=== PATIENT | female | born 1985 | race Caucasian/White ===

== ENCOUNTER → 2016-08-11 | Outpatient (CLI) | payer BC ==
[~2016-08-11] MED LIST: [UNRECOGNIZED DRUG - CODE]
[2016-08-11 18:06] LABS: GTGD 50 Grams
[2016-08-15 13:59] LABS: AFP CONCENTRATION 23.6 NG/ML; AFP MULTIPLE OF MEDIAN 0.91; AFPTS GESTATIONAL AGE 16.3 WEEKS; AFPTS INSULIN DEP DIABETIC? NO; AFPTS MATERNAL WT 226 LBS; ALPHA-FETOPROTEIN RACE CAUCASIAN=W; ESTRIOL MULTIPLE OF MEDIAN 1.55; HISTORY OF NTD NO; INHIBIN A 116 PG/ML; INHIBIN A MOM 0.83; REPEAT SAMPLE? NO; hCG MULTIPLE OF MEDIAN 1.42
== END | disposition home or self-care (01) ==
LOC: C.LAB1850 15:48
PROVIDERS: ATTEND Obstetrics & Gynecology
DX: Z34.82 Encounter for supervision of other normal pregnancy, second trimester (principal)

== ENCOUNTER → 2016-09-09 | Outpatient (CLI) | payer BC | END | disposition home or self-care (01) | LOC: C.LAB1850 07:21 | PROVIDERS: ATTEND Obstetrics & Gynecology | DX: O28.1 Abnormal biochemical finding on antenatal screening of mother (principal) ==

== ENCOUNTER → 2016-10-27 | Outpatient (CLI) | payer BC | LOC: C.LAB1850 07:54 | PROVIDERS: ATTEND Obstetrics & Gynecology | DX: Z34.82 Encounter for supervision of other normal pregnancy, second trimester (principal) ==

== ENCOUNTER → 2016-11-02 | Outpatient (CLI) | payer BC ==
[2016-11-02 18:11] LABS: URINE APPEARANCE CLEAR (CLEAR); URINE BILIRUBIN NEG (NEG); URINE COLOR YELLOW; URINE NITRITE NEG (NEG); URINE PH 6.5 (4.5-7.5); URINE SPECIFIC GRAVITY 1.019 (1.000-1.030); UROBILINOGEN NEG (NEG)
[2016-11-02 18:23] LABS: MANUAL MICROSCOPIC REQUIRED? NO; REVIEW REQ? NO
== END | disposition home or self-care (01) ==
LOC: C.LABSPEC 17:19
PROVIDERS: ATTEND Obstetrics & Gynecology
DX: Z34.83 Encounter for supervision of other normal pregnancy, third trimester (principal)

== ENCOUNTER → 2016-11-02 | Outpatient (CLI) | payer BC | END | disposition home or self-care (01) | LOC: C.LAB1850 16:47 | PROVIDERS: ATTEND Obstetrics & Gynecology | DX: Z34.83 Encounter for supervision of other normal pregnancy, third trimester (principal) ==

== ENCOUNTER → 2016-12-29 | Outpatient (CLI) | payer BC | END | disposition home or self-care (01) | LOC: C.LABSPEC 13:44 | PROVIDERS: ATTEND Obstetrics & Gynecology | DX: Z34.83 Encounter for supervision of other normal pregnancy, third trimester (principal) ==

== ENCOUNTER 2017-01-26 01:22 | Inpatient (IN) | payer BC ==
[~2017-01-26] VITALS: Ht 170.2 cm; Wt 117.9 kg
[2017-01-26] MEDS ORDERED: LACTATED RINGER'S 1000ML 1,000 ML IV SCH (01:37)
[2017-01-26] MEDS ORDERED: LACTATED RINGER'S 1000ML 1,000 ML IV PRN (01:37)
[2017-01-26 01:58] VITALS: Ht 170.2 cm; Wt 117.9 kg
[2017-01-26] MEDS ORDERED: EpHEDrine SULFATE INJ 50 MG/ML AMP ONE (02:00)
[2017-01-26] MEDS ORDERED: FENTANYL 2MCG/ML ROPIV 1.25MG/ML 100ML BAG EPI ONE (02:00)
[2017-01-26] MEDS ORDERED: BUPIVACAINE 0.25% 30 ML VIAL ONE (02:00)
[2017-01-26] MEDS ORDERED: FENTANYL CITRATE INJ 50 MCG/1 ML 2 ML VIAL ONE (02:01)
[2017-01-26 02:07] LABS: HEMATOCRIT 34.3 % (37-47); MEAN CELL VOLUME 82.9 fL (80-100); MEAN CORPUSCULAR HEMOGLOBIN 27.3 pg (25-34); MEAN PLATELET VOLUME 9.4 fL (7.4-10.4); PLATELET COUNT 262 K/uL (130-400); RED BLOOD COUNT 4.14 M/uL (4.2-5.4); WHITE BLOOD COUNT 9.33 K/uL (4.8-10.8)
[2017-01-26 02:17] LABS: MEAN CORPUSCULAR HGB CONC 32.9 g/dl (32-36)
[2017-01-26] MEDS ORDERED: LACTATED RINGER'S 1000ML 500 ML IV PRN (02:58)
[2017-01-26] MEDS ORDERED: NALOXONE HCL INJ 1 MG in SODIUM CHLORIDE 0.9% 1000ML 1,000 ML IV PRN (02:58)
[2017-01-26] MEDS ORDERED: PROMETHAZINE HCL INJ 6.25 MG in SODIUM CHLORIDE 0.9% 50ML 50 ML IV PRN (03:00)
[2017-01-26] MEDS ORDERED: ONDANSETRON INJ 2 MG/ML 2 ML VIAL IV PRN (03:00)
[2017-01-26] MEDS ORDERED: FENTANYL 2MCG/ML ROPIV 1.25MG/ML 100ML BAG EPI PRN (03:00)
[2017-01-26] MEDS ORDERED: DiphenhydrAMINE HCL 50 MG/ML VIAL IV PRN (03:00)
[2017-01-26] MEDS ORDERED: NALOXONE HCL INJ 0.4 MG/1 ML VIAL/CARP IV PRN (03:00)
[2017-01-26] MEDS ORDERED: NALBUPHINE HCL INJ 10 MG/ML AMP IV PRN (03:00)
[2017-01-26] MEDS ORDERED: EpHEDrine SULFATE INJ 50 MG/ML AMP IV PRN (03:00)
[2017-01-26] MEDS ORDERED: OXYTOCIN 30 UNITS/500ML NSS IV ONE (10:29)
[2017-01-26] MEDS ORDERED: LANOLIN OINT EXT PRN ×2 (10:45)
[2017-01-26] MEDS ORDERED: SUPERCREAM 0.870 % 15GM JAR EXT PRN (10:45)
[2017-01-26] MEDS ORDERED: ACETAMINOPHEN 325 MG TAB PO PRN (10:45)
[2017-01-26] MEDS ORDERED: OXYTOCIN 30 UNITS/500ML NSS IV PRN (10:45)
[2017-01-26] MEDS ORDERED: BENZOCAINE 20% AER SPR 82.5 GM CAN EXT PRN (10:45)
[2017-01-26] MEDS ORDERED: ACETAMINOPHEN/CODEINE 300/30MG TAB PO PRN ×2 (10:45)
--- NOTE | 2017-01-26 10:53 | Anesthesia Procedure Note ---
Anesthesia Epidural Removal Nt Date & Time Jan 26, 2017 at 10:53 Vital Signs Pain Intensity: 3.0 Notes Mental Status: alert / awake / arousable, participated in evaluation Nausea / Vomiting: adequately controlled Pain: adequately controlled Airway Patency, RR, SpO2: stable & adequate BP & HR: stable & adequate Hydration State: stable & adequate Neuraxial Anesthesia: was administered Anesthetic Complications: no major complications apparent, pt satisfied with anesthetic care Epidural: removed without complications, with tip intact
--- NOTE | 2017-01-26 11:26 | Vaginal Delivery Summary ---
Vaginal Delivery Summary Aparna is a 31-year-old 2 para 1001 white female EDC of 01/24/2017, who presents at 40 weeks in active labor. She received effective epidural analgesia. Membranes were ruptured at 8 cm dilation. The fluid was clear. She progressed rapidly to full dilation and pushed effectively through 3 contractions for delivery of a viable female . After delivery of the head., There was noted a tight nuchal cord which was clamped and cut. The rest of the delivered with ease. There was spontaneous crying which was vigorous, and the was moving all 4 limbs. The infant was placed on mother's abdomen for further attention and drying. The placenta was expressed intact with a three-vessel cord. A first-degree perineal laceration was repaired with 3-0 chromic in the usual fashion. Estimated blood loss is 250 mL. Mother and were doing well after delivery. bleeding was controlled with dilute Pitocin.
[2017-01-26] MEDS: IBUPROFEN 600 MG TAB PO PRN (13:08)
[2017-01-26 14:20] VITALS: BP 126/75; PULSE 101; TEMP 37.2
[2017-01-26 16:15] VITALS: BP 134/82; PULSE 84; TEMP 37.4; O2SAT 97
[2017-01-26 20:00] VITALS: BP 156/91; PULSE 88; TEMP 36.6; O2SAT 98
[2017-01-26] MEDS: DOCUSATE SODIUM 100 MG CAP PO SCH (20:11)
[2017-01-26 23:55] VITALS: BP 143/88; PULSE 87; TEMP 37.1; O2SAT 98
[2017-01-27] MEDS: IBUPROFEN 600 MG TAB PO PRN ×3 (00:03→09:23)
[2017-01-27 03:35] VITALS: BP 138/88; PULSE 94; TEMP 36.9; O2SAT 98
--- NOTE | 2017-01-27 06:31 | OB/GYN Progress Note ---
MANAGER UTILIZATION REVIEW Progress Note Date of Service Jan 27, 2017. Subjective conversation w/ patient, conversation w/ family, physical exam, chart review, lab review Ambulation: ambulating normally Voiding: no voiding problems Passing Gas: Yes (No BM yet) Diet Tolerance: Regular Diet Lochia: Small Feeding Type: Breast Feeding Pain: Says low abd cramping, mostly with breast feeding, denies pain. Notes: When asked if any hx HTN, pt denies, but says in last she had elev BP around time of delivery only. Pt says that self-resolved. At present, pt denies JOHNSON, blurry vision, extremity sensation/motor concerns, or other acute c/ o. Review of Systems Constitutional: No fever, No chills Respiratory: No cough, No shortness of breath Cardiac: No chest pain Abdomen: No nausea, No vomiting, No diarrhea Female : No dysuria Objective Vital Signs Date Time Temp Pulse Resp B/P (MAP) Pulse Ox O2 Delivery O2 Flow Rate FiO2 01/27/17 03:35 36.9 94 20 138/88 (105) 98 Room Air 01/26/17 23:55 37.1 87 18 143/88 (106) 98 Room Air 01/26/17 23:55 98 Room Air 01/26/17 20:00 36.6 88 18 156/91 (112) 98 Room Air 01/26/17 16:15 97 01/26/17 16:15 37.4 84 18 134/82 (99) 97 Room Air 01/26/17 14:20 37.2 101 22 126/75 (92) Physical Exam General Appearance: WELL-APPEARING, WD/WN, NO APPARENT DISTRESS Respiratory/Chest: lungs clear, normal breath sounds Cardiovascular: regular rate, rhythm Abdomen: normal bowel sounds, non tender, soft Fundus: Firm, Relation to Umbilicus (Approx one down) Extremities: normal range of motion, non-tender, no calf tenderness, + pedal edema (Minimal (B) ankle edema) Laboratory Results Last 24 Hours Test 01/27/17 04:44 Assessment and Plan Post- Day Number: 1 Continue Routine Care: Resident Physician Supervision Note: I was present with Dr. Wright during the history and exam. I discussed the case with the resident and agree with the findings and plan as documented in the note. Any exceptions or clarifications are listed here: [None] Documented By: Lu Coto In my clinical judgment this beneficiary meets acute admission criteria, established by [facility], that includes being hospitalized through two midnights.31yo s/p , now PPD #1. - Blood type A pos. GBS negative. Rubella immune. - Vital signs reviewed. Some elevated BP in last 12 hours. No JOHNSON, vision, focal neuro deficits. Will discuss on rounds. - Pain controlled with motrin and local heat pack. - Minimal leg swelling but no tenderness on calf palpation. Encourage ambulation. - Encourage breast feeding. - Hemoglobin 11.3 (prepartum). Today's Hb pending. Bleeding has improved. Continue to monitor clinically. - Continue routine post-vaginal delivery care. - Pt agreed with above plan, all current questions answered. Librado Wright MD, PGY1 [place] [employer] Tracking Resident Involvement: Resident Care Provided Care Provided: OB Delivery (morning rounds)
[2017-01-27 06:50] LABS: HEMATOCRIT 32.3 % (37-47)
[2017-01-27 07:10] VITALS: BP 149/84; PULSE 77; TEMP 36.9; O2SAT 98
[2017-01-27] MEDS ORDERED: PRENATAL VITAMIN TAB PO SCH (08:00)
[2017-01-27] MEDS: DOCUSATE SODIUM 100 MG CAP PO SCH (08:31)
--- NOTE | 2017-01-27 09:14 | Discharge Instructions ---
Discharge Instructions Date of Service Jan 27, 2017. Visit Reason for Visit: LABOR Discharge Discharge Diagnosis / Problem: Recovery from vaginal delivery Discharge Goals Goal(s): Specific goals (Recovery from vaginal delivery) Activity Recommendations Activity Limitations: per Instructions/Follow-up section Anesthesia . Post Anesthesia Instructions: If you have had General Anesthesia or IV Sedation: * Do not drive today. * Resume driving when surgeon permits. * Do not make important decisions or sign legal documents today. * Call surgeon for: 1. Temperature elevations greater than 101 degrees F. 2. Uncontrollable pain. 3. Excessive bleeding. 4. Persistent nausea and vomiting. 5. Medication intolerance (nausea, vomiting or rash). * For nausea and vomiting use only clear liquids such as: tea, soda, bouillon until nausea subsides, then gradually increase diet as tolerated. * If you have any concerns or questions, call your surgeon's office. If physician is unavailable and it is an emergency, call 911 or go to the nearest emergency room. . Instructions / Follow-Up Instructions / Follow-Up ACTIVITY RECOMMENDATIONS: * Gradual return to full activity over the next 2-3 weeks. * No lifting - nothing heavier than baby over the next 2-3 weeks. * Do not engage in vigorous exercise, sexual activity or sports until cleared by your physician. * Do not drive or operate any motorized equipment until cleared by your physician. * You may shower/bathe daily. MEDICATIONS: For discomfort or pain, you may use Acetaminophen (Tylenol), Ibuprofen (Advil), or Naproxen (Aleve) following the package directions. For constipation you may use Colace following the package directions. BREAST CARE: If you are not breast feeding: * Wear a supportive bra 24 hours a day for one to two weeks. * Avoid stimulating your breasts and nipples as much as possible during the first few weeks after delivery. * When taking a shower, have the warm water hit your back, not breasts. * When your breasts feel full, apply ice packs. Usually three to four times a day helps ease the discomfort. * Take a mild pain medication (Tylenol / Motrin) when you are uncomfortable. If breast feeding: * Use breast milk to lubricate nipples. Lansinoh cream may be used for sore nipples. You do not need to remove cream prior to breast feeding. If using a different brand of cream, check the label for directions regarding removal of cream prior to nursing. * Wear a supportive bra. * If having problems with breasts or breast feeding, call a sql consultant or your health care provider. EPISIOTOMY CARE: After delivery, if you have an episiotomy (stitches), the following steps will ease discomfort and aid healing. * For the first 24 hours after delivery, place ice packs next to your episiotomy to help reduce swelling. * After the first 24 hour-period, sitz baths, either portable or in the tub, are suggested. A shower with a shower arm sprayed over the episiotomy may be comforting. * Lizzy care should be done after each voiding and bowel movement. Squirt warm water from a plastic bottle over the perineum (region of the body between the anus and urinary opening) and pat dry. * Use Dermoplast to ease discomfort. Shake container. [place] directly over the episiotomy. Place a Tucks on a clean sanitary pad next to your episiotomy. SPECIAL CARE INSTRUCTIONS: When you are discharged from the hospital, it is important for you to follow the instructions listed below: * During the first week at home, you should be able to care for yourself and your baby. In addition, the usual light household activities are encouraged. * Limit your activities to the way you feel. Do not try to clean the house or move furniture. Be sensible. * If you actively engage in sports and have done so up until the time of your delivery, you may resume these activities as soon as you feel able. This may take up to one month or even longer. Use good judgment. * Continue to take your vitamins for at least six weeks after the of your baby. * Your diet need not be limited unless you were on a special diet before your delivery. Breast-feeding mothers need around 2500 calories per day and at least 64-80 ounces of fluid per day (8 to 10 glasses). * You should eat foods from the four major food groups. Crash diets or fad diets are to be avoided. Eating lean meats, fresh fruits and vegetables, low-fat dairy products, high fiber foods and a regular exercise program, will help you get back to your pre- weight without putting your health at risk. * Constipation is sometimes a problem after delivery. Take a mild laxative as needed. If breast feeding, Milk of Magnesia is acceptable to use. You may use a suppository or Fleets enema if no episiotomy. * A daily shower or tub bath is suggested. Be sure to thoroughly and gently dry the perineum. * A bloody vaginal discharge will usually continue until around four weeks post . A small amount of bleeding may continue for as long as six weeks. Vaginal discharge changes from the bright red bleeding after delivery to pink then brownish and finally yellowish-pink before becoming white and disappearing. * Bleeding may increase with activity. Your first period may come in 4-8 weeks. If you are breast feeding, your period may be delayed even longer. * [place] (sex) can begin whenever both you and your partner feel comfortable and do not have any form of genital infection. It is recommended that you wait at least six weeks for internal and external healing to occur. If you have questions, please talk to your health care practitioner. A condom should be used to prevent infection and . * Foreplay, gentle intercourse and lubrication is very important the first several times to prevent pain. A water-based lubricant such as K-Y jelly or Astroglide may be used. * If you have RH negative blood and your baby is RH positive, you will receive RHOGAM by injection prior to discharge. The nurse will give you a card to keep with you that has the date and place that you received RHOGAM after delivery. * During your care, you had a Rubella screen done to check for the presence of rubella antibodies in your blood. If your test was negative, you will receive a Rubella vaccine prior to discharge. This vaccine may cause a fever, soreness at the injection site and flu-like symptoms. If these symptoms persist, notify your health care practitioner. is not advised for one month after a Rubella vaccine. * Verbalizes understanding of car seat law as reviewed with patient nursing. * Car Seat hand-out given and reviewed with patient by nursing. * Shaken baby information reviewed with patient by nursing. Call you doctor if: * Heavy bleeding (saturating several pads an hour) or passing clots the size of your fist. * A fever >101 degrees F (38.3 degrees C) on two occasions four hours apart and /or chills. * Unusual pain in the pelvic or vaginal areas. * "Baby Blues" lasting longer than two weeks. If you have any questions or concerns, call your health care practitioner at . FOLLOW UP VISIT: * Please call the office at to schedule a 6 week examination. It is important you keep this appointment. It is important for you to make arrangements for either yearly or twice yearly check-ups thereafter. Diet Recommendations Recommended Home Diet: resume previous diet (OB diet) Pending Studies Studies pending at discharge: no Medical Emergencies . Who to Call and When: Medical Emergencies: If at any time you feel your situation is an emergency, please call 911 immediately. . Non-Emergent Contact Non-Emergency issues call your: Ad Trafficker . . "Provider Documentation" section prepared by Librado Wright. .
[2017-01-27 11:35] VITALS: BP 133/85
[2017-01-27 12:45] VITALS: BP_DIAS 85; PULSE 77; TEMP 36.9
[2017-01-27] MEDS ORDERED: BISACODYL 5 MG TABEC PO SCH (20:00)
== END 2017-01-27 12:55 | disposition home or self-care (01) | DRG 775 ==
LOC: C.OPB 01:22 → C.LD 01:23 → C.OPB 01:40 → C.OBG 15:06
PROVIDERS: ADMIT Obstetrics & Gynecology; ATTEND Obstetrics & Gynecology
PROC: 0HQ9XZZ Repair Perineum Skin, External Approach (ICD-10-PCS; principal; 2017-01-26)
PROC: 10E0XZZ Delivery of Products of Conception, External Approach (ICD-10-PCS; principal; 2017-01-26)
DX: O48.0 Post-term pregnancy (principal); Z68.41 Body mass index [BMI] 40.0-44.9, adult; Z37.0 Single live birth; O70.0 First degree perineal laceration during delivery; O69.1XX0 Labor and delivery complicated by cord around neck, with compression, not applicable or unspecified; O99.214 Obesity complicating childbirth; E66.9 Obesity, unspecified; Z3A.40 40 weeks gestation of pregnancy